=== PATIENT | male | born 1970 | race Caucasian/White ===

== ENCOUNTER 2019-11-15 20:43 | Emergency (ER) | payer MEDICAID, OTHER ==
[2019-11-15] MEDS ORDERED: Sodium Chloride 0.9% 10 ML Syringe FLUSH PRN (21:32)
[2019-11-15] MEDS ORDERED: Ondansetron 4 MG/2 ML SDV IVPUSH ONE (21:33)
--- NOTE | 2019-11-15 21:35 | EDM.PDOC ---
ED HPI GENERAL MEDICAL PROBLEM - General Chief Complaint: Gastrointestinal Problem Stated Complaint: VOMITING BLOOD Time Seen by Provider: 11/15/19 20:45 Source of Information: Reports: Patient, RN Notes Reviewed History Limitations: Reports: No Limitations - History of Present Illness INITIAL COMMENTS - FREE TEXT/NARRATIVE: 48-year-old gentleman presents emergency department a complaint of vomiting blood, he has had an episode like this several years ago he does not recall the reason. This particular event he has had 2 bouts vomiting bright red blood both times it appeared like red streaks in his emesis he did not vomit any large clots. He does admit to consuming alcohol today and admits he is under a lot of stress - Related Data Allergies Allergy/AdvReac Type Severity Reaction Status Date / Time No Known Allergies Allergy Verified 11/15/19 21:17 Home Meds: Home Meds Aspirin [Lizzie Chewable] 81 mg PO DAILY 05/31/13 [History] Past Medical History Gastrointestinal History: Reports: GERD Musculoskeletal History: Reports: Arthritis Neurological History: Reports: CVA - Past Surgical History GI Surgical History: Reports: Appendectomy Social & Family History - Tobacco Use Smoking Status *Q: Current Every Day Smoker Years of Tobacco use: 35 Packs/Tins Daily: 1.3 - Caffeine Use Caffeine Use: Reports: Coffee - Recreational Drug Use Recreational Drug Use: No ED ROS GENERAL - Review of Systems Review Of Systems: See Below Constitutional: Reports: No Symptoms Respiratory: Reports: No Symptoms Cardiovascular: Reports: No Symptoms GI/Abdominal: Reports: Hematemesis, Nausea. Denies: Abdominal Pain, Vomiting : Reports: No Symptoms ED EXAM, GI/ABD - Physical Exam Exam: See Below Exam Limited By: No Limitations General Appearance: Alert, WD/WN, No Apparent Distress Eyes: Bilateral: Normal Appearance Nose: Normal Inspection, Normal Mucosa, No Blood Throat/Mouth: Normal Inspection, Normal Lips, Normal Teeth, Normal Gums, Normal Oropharynx, Normal Voice, No Airway Compromise Head: Atraumatic, Normocephalic Neck: Normal Inspection, Supple, Non-Tender, Full Range of Motion Respiratory/Chest: No Respiratory Distress, Lungs Clear, Normal Breath Sounds, No Accessory Muscle Use, Chest Non-Tender Cardiovascular: Regular Rate, Rhythm, No Murmur GI/Abdominal Exam: Normal Bowel Sounds, Soft, Non-Tender Course - Vital Signs Last Recorded V/S: Last Vital Signs Temp 97.6 F 06/01/20 21:19 Pulse 63 11/15/19 22:02 Resp 18 11/15/19 21:19 BP 110/75 11/15/19 22:02 Pulse Ox 97 11/15/19 21:19 - Orders/Labs/Meds Orders: Active Orders 24 hr Category Date Time Status Peripheral IV Care [RC] . DIRECTED Care 11/15/19 21:32 Active Lactated Ringers [Ringers, Lactated] 1,000 ml Med 11/15/19 21:45 Active IV ASDIRECTED Pantoprazole [ProTONIX IV] Med 11/15/19 21:45 Active 80 mg IVPUSH .BOLUS Sodium Chloride 0.9% [Saline Flush] Med 11/15/19 21:32 Active 10 ml FLUSH ASDIRECTED PRN Peripheral IV Insertion Adult [OM.PC] Urgent Oth 11/15/19 21:32 Ordered Medication Orders Lactated Ringer's (Ringers, Lactated) 1,000 mls @ 999 mls/hr IV ASDIRECTED SHALA Last Admin: 11/15/19 21:51 Dose: 999 mls/hr Pantoprazole Sodium (Protonix Iv) 80 mg IVPUSH .BOLUS SHALA Last Admin: 11/15/19 21:49 Dose: 80 mg Sodium Chloride (Saline Flush) 10 ml FLUSH ASDIRECTED PRN PRN Reason: Keep Vein Open Last Admin: 11/15/19 21:50 Dose: 10 ml Labs: Laboratory Tests 11/15/19 11/15/19 11/15/19 Range/Units 21:32 21:41 21:41 WBC 14.5 H (4.5-11.0) K/uL RBC 4.33 (4.30-5.90) M/uL Hgb 14.0 (12.0-15.0) g/dL Hct 41.6 (40.0-54.0) % MCV 96 (80-98) fL MCH 32 H (27-31) pg MCHC 34 (32-36) % Plt Count 196 (150-400) K/uL Neut % (Auto) 80 H (36-66) % Lymph % (Auto) 13 L (24-44) % [place] % (Auto) 6 (2-6) % Eos % (Auto) 1 L (2-4) % Baso % (Auto) 0 (0-1) % Sodium 137 L (140-148) mmol/L Potassium 3.8 (3.6-5.2) mmol/L Chloride 100 (100-108) mmol/L Carbon Dioxide 26 (21-32) mmol/L Anion Gap 14.8 H (5.0-14.0) mmol/L BUN 9 (7-18) mg/dL Creatinine 0.9 (0.8-1.3) mg/dL Est Cr Clr Drug Dosing 91.11 mL/min Estimated GFR (MDRD) > 60 (>60) Glucose 97 (74-106) mg/dL Lactic Acid 1.0 (0.4-2.0) mmol/L Calcium 8.3 L (8.5-10.1) mg/dL Total Bilirubin 0.4 (0.2-1.0) mg/dL AST 16 (15-37) U/L ALT 26 (12-78) U/L Alkaline Phosphatase 73 (46-116) U/L Total Protein 7.0 (6.4-8.2) g/dL Albumin 3.8 (3.4-5.0) g/dL Globulin 3.2 (2.3-3.5) g/dL Albumin/Globulin Ratio 1.2 (1.2-2.2) Lipase 114 (73-393) U/L Ethyl Alcohol mg/dL 11/15/19 Range/Units 21:41 WBC (4.5-11.0) K/uL RBC (4.30-5.90) M/uL Hgb (12.0-15.0) g/dL Hct (40.0-54.0) % MCV (80-98) fL MCH (27-31) pg MCHC (32-36) % Plt Count (150-400) K/uL Neut % (Auto) (36-66) % Lymph % (Auto) (24-44) % [place] % (Auto) (2-6) % Eos % (Auto) (2-4) % Baso % (Auto) (0-1) % Sodium (140-148) mmol/L Potassium (3.6-5.2) mmol/L Chloride (100-108) mmol/L Carbon Dioxide (21-32) mmol/L Anion Gap (5.0-14.0) mmol/L BUN (7-18) mg/dL Creatinine (0.8-1.3) mg/dL Est Cr Clr Drug Dosing mL/min Estimated GFR (MDRD) (>60) Glucose (74-106) mg/dL Lactic Acid (0.4-2.0) mmol/L Calcium (8.5-10.1) mg/dL Total Bilirubin (0.2-1.0) mg/dL AST (15-37) U/L ALT (12-78) U/L Alkaline Phosphatase (46-116) U/L Total Protein (6.4-8.2) g/dL Albumin (3.4-5.0) g/dL Globulin (2.3-3.5) g/dL Albumin/Globulin Ratio (1.2-2.2) Lipase (73-393) U/L Ethyl Alcohol 194 mg/dL Meds: Medications Generic Name Dose Route Start Last Admin Trade Name Freq PRN Reason Stop Dose Admin Lactated Ringer's 1,000 mls @ 999 mls/hr 11/15/19 21:45 11/15/19 21:51 Ringers, Lactated IV 999 mls/hr ASDIRECTED SHALA Administration Pantoprazole Sodium 80 mg 11/15/19 21:45 11/15/19 21:49 Protonix Iv IVPUSH 80 mg .BOLUS SHALA Administration Sodium Chloride 10 ml 11/15/19 21:32 11/15/19 21:50 Saline Flush FLUSH 10 ml ASDIRECTED PRN Administration Keep Vein Open Discontinued Medications Generic Name Dose Route Start Last Admin Trade Name Giovanni PRN Reason Stop Dose Admin Ondansetron HCl 4 mg 11/15/19 21:33 11/15/19 21:51 Zofran IVPUSH 11/15/19 21:34 4 mg ONETIME ONE Administration Departure - Departure Time of Disposition: 22:34 Disposition: Home, Self-Care 01 Condition: Fair Clinical Impression: Hematemesis Qualifiers: Nausea presence: without nausea Qualified Code(s): K92.0 - Hematemesis - Discharge Information Instructions: Hematemesis Referrals: PCP,None [Primary Care Provider] - Forms: ED Department Discharge Additional Instructions: Recommend restarting her Zantac 150 mg 1 tablet daily hold your aspirin until the EGD is completed, recommend stop uses of alcohol until EGD is completed the outpatient surgery center will call you for an appointment time for your EGD tomorrow Sepsis Event Note - Evaluation Sepsis Screening Result: No Definite Risk - Focused Exam Vital Signs: Vital Signs Temp Pulse Resp BP Pulse Ox 11/15/19 22:02 63 110/75 11/15/19 21:19 97.6 F 71 18 135/94 H 97 11/15/19 21:03 97.6 F 71 18 135/94 H 97 Date Exam was Performed: 11/15/19 Time Exam was Performed: 22:33 - My Orders Last 24 Hours: My Active Orders 11/15/19 21:32 Peripheral IV Care [RC] . DIRECTED Sodium Chloride 0.9% [Saline Flush] 10 ml FLUSH ASDIRECTED PRN Peripheral IV Insertion Adult [OM.PC] Urgent 11/15/19 21:45 Lactated Ringers [Ringers, Lactated] 1,000 ml IV ASDIRECTED Pantoprazole [ProTONIX IV] 80 mg IVPUSH .BOLUS - Assessment/Plan Last 24 Hours: My Active Orders 11/15/19 21:32 Peripheral IV Care [RC] . DIRECTED Sodium Chloride 0.9% [Saline Flush] 10 ml FLUSH ASDIRECTED PRN Peripheral IV Insertion Adult [OM.PC] Urgent 11/15/19 21:45 Lactated Ringers [Ringers, Lactated] 1,000 ml IV ASDIRECTED Pantoprazole [ProTONIX IV] 80 mg IVPUSH .BOLUS Plan: Assessment Acuity = acute Site and laterality = hematemesis Etiology = unknown Manifestations = none Location of injury = Home Lab values = CBC reveals a hemoglobin 14.1 WBC elevated 14.5 consistent leukocytosis sodium low at 137 consistent hyponatremia alcohol elevated 194 Plan Call discussed case Dr. Gandhi felt he could have an EGD done this week with Dr. Gandhi at 2230 therefore put in an order for [facility] they will call him in the morning and schedule an appointment time This note was dictated using [employer] voice recognition software please call with any questions on syntax or grammar.
[2019-11-15] MEDS ORDERED: Pantoprazole 40 MG Vial IVPUSH SCH (21:45)
[2019-11-15] MEDS ORDERED: Lactated Ringers 1,000 ML IV SCH (21:45)
[2019-11-15 22:03] VITALS: BP 110/75; PULSE 63
== END 2019-11-15 22:53 | disposition home or self-care (01) ==
LOC: JP.ED 20:43
DX: K92.0 Hematemesis (principal); F17.210 Nicotine dependence, cigarettes, uncomplicated; M19.90 Unspecified osteoarthritis, unspecified site; Z79.82 Long term (current) use of aspirin; Z86.73 Personal history of transient ischemic attack (TIA), and cerebral infarction without residual deficits
CPT/HCPCS: 36415; 80053; 80307; 83605; 83690; 85025; 96361; 96374; 96375; 99284; C9113; J2405; J7120

== ENCOUNTER 2019-11-26 08:56 | Day surgery (SDC) | payer SELFPAY ==
[2019-11-26] MEDS ORDERED: Midazolam 1 MG/ML 2 ML SDV ONE (10:40)
[2019-11-26] MEDS ORDERED: fentaNYL 100 MCG/2 ML SDV ONE (10:40)
[2019-11-26] MEDS ORDERED: Propofol 200 MG/20 ML SDV ONE (10:45)
[2019-11-26] MEDS ORDERED: Sodium Chloride 0.9% 1,000 ML IV SCH (11:00)
[2019-11-26 12:31] VITALS: BP 86/62; PULSE 45
--- NOTE | 2019-11-26 12:55 | OR ---
DATE OF PROCEDURE: 11/26/2019 SURGEON: Leonard Gandhi MD PROCEDURE: Esophagogastroduodenoscopy. FINDINGS: 1. Patulous area in duodenum (biopsied using cold biopsy forceps). 2. Inflammation at GE junction concerning for reflux disease. 3. No etiology for hemoptysis. COMPLICATION: None. [employer]: None. ANESTHESIA: MAC. PREOPERATIVE DIAGNOSIS: Hemoptysis/dysphagia. POSTOPERATIVE DIAGNOSIS: Hemoptysis/dysphagia. PROCEDURE IN DETAIL: The patient was placed in left lateral decubitus position. EGD scope was introduced and advanced atraumatically to second part of the duodenum. Within the duodenal bulb itself, there was a patulous area, which was biopsied multiple times using cold biopsy forceps. This may represent more prominent folds. The stomach proper did not show any evidence of gastritis or ulceration. The patient did have a small sliding hiatal hernia. The GE junction showed inflammation consistent with reflux disease and this was biopsied multiple times using cold biopsy forceps. Remainder of the esophagus was inspected without abnormality. The patient tolerated the procedure well. Leonard Gandhi MD /[id number]
== END 2019-11-26 12:59 | disposition home or self-care (01) ==
LOC: JP.SDS 08:56
PROVIDERS: ATTEND Surgery
DX: K29.50 Unspecified chronic gastritis without bleeding (principal); K21.0 Gastro-esophageal reflux disease with esophagitis; Q43.8 Other specified congenital malformations of intestine; D72.820 Lymphocytosis (symptomatic); K31.89 Other diseases of stomach and duodenum; F17.200 Nicotine dependence, unspecified, uncomplicated
CPT/HCPCS: 43239; J2250; J2704; J3010; J7030; 88305

== ENCOUNTER 2024-12-19 10:07 | Emergency (ER) | payer SELFPAY ==
[2024-12-19 10:22] LABS: BASOPHILS ABSOLUTE AUTO 0.04 K/uL (0.00-0.10); BASOPHILS PERCENT AUTO 0.5 % (0.1-1.3); EOSINOPHILS ABSOLUTE AUTO 0.04 K/uL (0.00-0.40); EOSINOPHILS PERCENT AUTO 0.5 % (0.0-5.4); IMMATURE GRAN ABSOLUTE AUTO 0.02 K/uL (0.00-0.23); IMMATURE GRAN PERCENT AUTO 0.2 % (0.0-0.7); LYMPHOCYTES ABSOLUTE AUTO 1.81 K/uL (0.8-3.3); LYMPHOCYTES PERCENT AUTO 21.5 % (11.4-47.7); MONOCYTES ABSOLUTE AUTO 0.63 K/uL (0.20-0.90); MONOCYTES PERCENT AUTO 7.5 % (3.3-12.6); NEUTROPHILS ABSOLUTE AUTO 5.87 K/uL (1.0-7.6); NEUTROPHILS PERCENT AUTO 69.8 % (40.0-78.1); PLATELET COUNT,PLT 219 K/uL (130-375); RED BLOOD CELL COUNT 4.49 M/uL (4.14-5.76); WHITE BLOOD CELL COUNT,WBC 8.4 K/uL (3.2-11.0)
[2024-12-19] MEDS: Ondansetron 4 MG/2 ML SDV IVPUSH ONE (10:24)
[2024-12-19] MEDS: Sodium Chloride 0.9% 10 ML Syringe FLUSH PRN (10:29)
[2024-12-19] MEDS: Nitroglycerin 0.4 MG Tab.SL SL PRN (10:32)
[2024-12-19 10:45] LABS: A/G RATIO 0.9 (1.2-2.2); ALANINE AMINOTRANSFERASE,ALT 38 U/L (12-78); ASPARTATE AMNIOTRANSFERASE,AST 48 U/L (15-37); BILIRUBIN TOTAL 0.6 mg/dL (0.2-1.0); BLOOD UREA NITROGEN,BUN 13 mg/dL (7-18); CARBON DIOXIDE,CO2 26 mmol/L (21-32); CHLORIDE,CL 99 mmol/L (100-108); CREATININE 1.0 mg/dL (0.8-1.3); EST CRCL DRUG DOSING (CG) 68.79 mL/min; ESTIMATED GFR 88 mL/min (>60); GLUCOSE RANDOM 104 mg/dL (74-106); POTASSIUM,K 3.9 mmol/L (3.6-5.2); PROTEIN TOTAL,TP 7.4 g/dL (6.4-8.2); SODIUM,NA 137 mmol/L (140-148); TROPONIN I HIGH SENSITIVITY 6.0 pg/mL (<=60.3)
[2024-12-19] MEDS: Sodium Chloride 0.9% 10 ML Syringe FLUSH ONE (13:51)
[2024-12-19] MEDS: Iopamidol 612 MG/ML 100 ML Bottle IV PRN (13:51)
[2024-12-19 15:18] VITALS: BP 139/75; PULSE 51
== END 2024-12-19 15:43 | disposition home or self-care (01) ==
LOC: JP.ED 10:07
DX: R07.89 Other chest pain (principal); F17.200 Nicotine dependence, unspecified, uncomplicated; Z79.82 Long term (current) use of aspirin; Z86.73 Personal history of transient ischemic attack (TIA), and cerebral infarction without residual deficits
CPT/HCPCS: 36415; 71045; 71260; 80053; 84484; 85025; 93005; 96374; 96375; 96376; 99285; A9270; J2270; J2405; Q9967; 93010; 99284